=== PATIENT | female | born 1995 | race Two or more races ===

== ENCOUNTER → 2021-10-07 | Outpatient (REF) | payer SELFPAY ==
[2021-10-07 16:51] LABS: HCG, SERUM QUALITATIVE NEGATIVE (NEGATIVE)
== END ==
LOC: M LABWUC 16:11
PROVIDERS: ATTEND Psychiatry & Neurology Neurology
DX: R51.9 Headache, unspecified (principal)

== ENCOUNTER → 2022-12-12 | Outpatient (CLI) | payer OTHER ==
[2022-12-12 13:44] LABS: FREE T3 3.3 PG/ML (2.3-4.2)
[2022-12-12 13:45] LABS: FOLLICLE STIMULATING HORMONE 3.6 mIU/ML; FREE T4 0.95 NG/DL (0.89-1.76); THYROID STIMULATING HORMONE 0.843 uIU/ML (0.55-4.78); THYROXINE (T4) 7.8 UG/DL (4.5-10.9)
[2022-12-12 13:46] LABS: ESTRADIOL 122.7 PG/ML; LUTEINIZING HORMONE 2.4 mIU/ML; TOTAL 25(OH) VITAMIN D 30.5 NG/ML (20.0-100.0)
[2022-12-12 13:47] LABS: PROGESTERONE 10.49 NG/ML
== END ==
LOC: M WUC 10:12
PROVIDERS: ATTEND Nurse Practitioner Family
DX: N92.6 Irregular menstruation, unspecified (principal); N97.9 Female infertility, unspecified; Z79.899 Other long term (current) drug therapy

== ENCOUNTER → 2022-12-12 | Outpatient (CLI) | payer OTHER ==
[2022-12-12 13:43] LABS: THYROID STIMULATING HORMONE 0.84 uIU/ML (0.55-4.78)
[2022-12-12 13:46] LABS: PROGESTERONE 10.31 NG/ML
== END ==
LOC: M WUC 10:15
PROVIDERS: ATTEND Internal Medicine
DX: N92.6 Irregular menstruation, unspecified (principal); M54.6 Pain in thoracic spine; M41.84 Other forms of scoliosis, thoracic region

== ENCOUNTER 2023-06-11 14:37 | Emergency (ER) | payer OTHER ==
[~2023-06-11] VITALS: Ht 147.3 cm; Wt 73.4 kg
[2023-06-11 18:47] LABS: BASO # 0.1 10^3/uL (0.0-0.2); BASO % 0.8 % (0.0-1.0); EOS # 0.4 10^3/uL (0.0-0.5); EOS % 3.9 % (0.0-3.0); HEMATOCRIT 44.3 % (36.0-47.0); HEMOGLOBIN 14.8 g/dl (12.0-15.5); LYMPH % 30.7 % (24.0-44.0); MEAN CORPUSCULAR HEMOGLOBIN 29.9 pg (27.0-33.0); MEAN CORPUSCULAR HGB CONC 33.4 g/dl (32.0-36.5); MEAN CORPUSCULAR VOLUME 89.5 fl (80.0-96.0); MONO # 0.6 10^3/uL (0.0-0.8); MONO % 5.7 % (2.0-8.0); NEUTROPHILS # 5.8 10^3/uL (1.5-8.5); NEUTROPHILS % 58.7 % (36.0-66.0); PLATELET COUNT, AUTOMATED 303 10^3/uL (150-450); RED BLOOD COUNT 4.95 10^6/uL (4.00-5.40); WHITE BLOOD COUNT 9.9 10^3/uL (4.0-10.0)
[2023-06-11 19:13] LABS: LIPASE 36 U/L (12-53)
[2023-06-11 19:20] LABS: ALKALINE PHOSPHATASE 69 U/L (46-116); ALT/SGPT 19 U/L (7.0-40); AST/SGOT 21 U/L (<34); BILIRUBIN,DIRECT 0.1 MG/DL (<0.4); BILIRUBIN,TOTAL 0.5 MG/DL (0.3-1.2); BLOOD UREA NITROGEN < 5 MG/DL (9-23); CALCIUM LEVEL 8.8 MG/DL (8.5-10.1); CARBON DIOXIDE LEVEL 27 MMOL/L (20-31); CHLORIDE LEVEL 103 MMOL/L (98-107); CREATININE FOR GFR 0.58 MG/DL (0.55-1.30); GLOMERULAR FILTRATION RATE > 60.0 (>60); GLUCOSE, FASTING 87 MG/DL (60-100); HCG, SERUM QUALITATIVE NEGATIVE (NEGATIVE); POTASSIUM SERUM 4.2 MMOL/L (3.5-5.1); SODIUM LEVEL 137 MMOL/L (136-145); TOTAL PROTEIN 7.8 G/DL (5.7-8.2)
[2023-06-11] MEDS ORDERED: ISOVUE-370 76% 100ML VIAL As Ordered ONE (20:31)
[2023-06-11] MEDS: ACETAMINOPHEN 500 MG TAB PO ONE (22:13)
[2023-06-11 22:19] VITALS: BP 120/74; TEMP 97.8; O2SAT 100
== END 2023-06-11 22:40 | disposition home or self-care (01) ==
LOC: M ED 14:37
DX: R10.10 Upper abdominal pain, unspecified (principal); N83.291 Other ovarian cyst, right side; K76.0 Fatty (change of) liver, not elsewhere classified; F32.A Depression, unspecified; E03.9 Hypothyroidism, unspecified; F17.200 Nicotine dependence, unspecified, uncomplicated; F10.10 Alcohol abuse, uncomplicated
CPT/HCPCS: 36415; 71046; 74177; 80048; 80076; 83690; 84703; 85025; 99284; Q9967

== ENCOUNTER 2023-08-25 14:30 | Emergency (ER) | payer OTHER ==
[~2023-08-25] VITALS: Ht 147.3 cm; Wt 72.7 kg
[2023-08-25 15:11] LABS: BASO # 0.1 10^3/uL (0.0-0.2); BASO % 0.4 % (0.0-1.0); EOS # 0.1 10^3/uL (0.0-0.5); EOS % 0.8 % (0.0-3.0); HEMATOCRIT 41.2 % (36.0-47.0); HEMOGLOBIN 13.8 g/dl (12.0-15.5); LYMPH # 2.1 10^3/uL (1.5-5.0); LYMPH % 18.2 % (24.0-44.0); MEAN CORPUSCULAR HEMOGLOBIN 30.2 pg (27.0-33.0); MEAN CORPUSCULAR HGB CONC 33.5 g/dl (32.0-36.5); MEAN CORPUSCULAR VOLUME 90.2 fl (80.0-96.0); MONO # 0.9 10^3/uL (0.0-0.8); NEUTROPHILS # 8.4 10^3/uL (1.5-8.5); NEUTROPHILS % 72.2 % (36.0-66.0); PLATELET COUNT, AUTOMATED 299 10^3/uL (150-450); RED BLOOD COUNT 4.57 10^6/uL (4.00-5.40); WHITE BLOOD COUNT 11.6 10^3/uL (4.0-10.0)
[2023-08-25] MEDS: diphenhydrAMINE 50MG/ML VIAL IV STA (15:22)
[2023-08-25 15:38] LABS: LIPASE 40 U/L (12-53)
[2023-08-25 15:41] LABS: ALBUMIN 3.7 G/DL (3.2-5.2); ALKALINE PHOSPHATASE 55 U/L (46-116); ALT/SGPT 31 U/L (7.0-40); AST/SGOT 11 U/L (<34); BILIRUBIN,DIRECT 0.1 MG/DL (<0.4); BILIRUBIN,TOTAL 0.5 MG/DL (0.3-1.2); CK-MB VALUE MASS < 1.0 NG/ML (<3.6); TOTAL PROTEIN 7.1 G/DL (5.7-8.2)
[2023-08-25 15:56] LABS: CPK CREATINE PHOSPHOKINASE 58 U/L (34-145); MB/CK RELATIVE INDEX 1.72 (< OR =4)
[2023-08-25 16:17] LABS: CK-MB VALUE MASS < 1.0 NG/ML (<3.6)
[2023-08-25 16:19] LABS: CPK CREATINE PHOSPHOKINASE 72 U/L (34-145); MB/CK RELATIVE INDEX 1.38 (< OR =4)
[2023-08-25] MEDS: cefTRIAXone SOD 1 GM in D5W MINI-BAG PLUS 50 ML IV ONE (16:21)
[2023-08-25 16:38] VITALS: BP 99/54; TEMP 98.4; O2SAT 100
[2023-08-25] MEDS: NS 1,000 ML IV ONE (16:54)
[2023-08-25 17:26] LABS: GC DNA AMPLIFICATION NEGATIVE (NEGATIVE)
[2023-08-25] MEDS ORDERED: CEPH500C PO (17:43)
== END 2023-08-25 17:49 | disposition home or self-care (01) ==
LOC: M ED 14:30
DX: O20.0 Threatened abortion (principal); O99.411 Diseases of the circulatory system complicating pregnancy, first trimester; R07.9 Chest pain, unspecified; O99.351 Diseases of the nervous system complicating pregnancy, first trimester; G43.909 Migraine, unspecified, not intractable, without status migrainosus; O23.41 Unspecified infection of urinary tract in pregnancy, first trimester; K76.0 Fatty (change of) liver, not elsewhere classified; E03.9 Hypothyroidism, unspecified; Z3A.01 Less than 8 weeks gestation of pregnancy; Z79.2 Long term (current) use of antibiotics
CPT/HCPCS: 76801; 80047; 80076; 81001; 82550; 82553; 83690; 84484; 84702; 85025; 85379; 86850; 86900; 86901; 87086; 87210; 87810; 87850; 93005; 93976; 96361; 96365; 99284; J0696; J1200

== ENCOUNTER 2023-08-28 02:04 | Emergency (ER) | payer OTHER ==
[~2023-08-28] VITALS: Ht 147.3 cm; Wt 71.8 kg
[~2023-08-28 02:04] MED LIST: CEPH500C PO
[2023-08-28] MEDS: NS 1,000 ML IV ONE (06:54)
[2023-08-28] MEDS: METOCLOPRAMIDE INJ 10MG/2ML VIAL IV ONE (06:56)
[2023-08-28 07:00] LABS: BASO # 0.1 10^3/uL (0.0-0.2); BASO % 0.4 % (0.0-1.0); HEMATOCRIT 38.8 % (36.0-47.0); LYMPH # 1.7 10^3/uL (1.5-5.0); MEAN CORPUSCULAR HEMOGLOBIN 29.4 pg (27.0-33.0); MEAN CORPUSCULAR HGB CONC 33.5 g/dl (32.0-36.5); MEAN CORPUSCULAR VOLUME 87.8 fl (80.0-96.0); MONO # 0.6 10^3/uL (0.0-0.8); MONO % 4.7 % (2.0-8.0); NEUTROPHILS # 10.9 10^3/uL (1.5-8.5); NEUTROPHILS % 81.4 % (36.0-66.0); PLATELET COUNT, AUTOMATED 333 10^3/uL (150-450); RED BLOOD COUNT 4.42 10^6/uL (4.00-5.40); WHITE BLOOD COUNT 13.3 10^3/uL (4.0-10.0)
[2023-08-28 07:21] LABS: LIPASE 32 U/L (12-53)
[2023-08-28] MEDS: diphenhydrAMINE 50MG/ML VIAL IV STA (07:30)
[2023-08-28 07:35] LABS: ALBUMIN 3.5 G/DL (3.2-5.2); ALKALINE PHOSPHATASE 59 U/L (46-116); ALT/SGPT 29 U/L (7.0-40); AST/SGOT 9 U/L (<34); BILIRUBIN,DIRECT 0.2 MG/DL (<0.4); BILIRUBIN,TOTAL 0.5 MG/DL (0.3-1.2); BLOOD UREA NITROGEN 8 MG/DL (9-23); CALCIUM LEVEL 8.8 MG/DL (8.5-10.1); CARBON DIOXIDE LEVEL 24 MMOL/L (20-31); CHLORIDE LEVEL 107 MMOL/L (98-107); CREATININE FOR GFR 0.47 MG/DL (0.55-1.30); GLOMERULAR FILTRATION RATE > 60.0 (>60); GLUCOSE, FASTING 100 MG/DL (60-100); HCG, SERUM QUANTITATIVE 78988.4 MIU/ML (<4.2); POTASSIUM SERUM 4.2 MMOL/L (3.5-5.1); SODIUM LEVEL 138 MMOL/L (136-145); TOTAL PROTEIN 6.7 G/DL (5.7-8.2)
[2023-08-28] MEDS: LIDOCAINE 2% 5ML JELLY UROJET TOP ONE (09:45)
[2023-08-28] MEDS: CEPHALEXIN 500 MG CAP PO ONE (10:45)
[2023-08-28 10:57] VITALS: BP 103/58; TEMP 98.4; O2SAT 99
[2023-08-31] MEDS ORDERED: MACR100C43 PO (10:54)
== END 2023-08-28 10:59 | disposition home or self-care (01) ==
LOC: M ED 02:04
DX: O23.41 Unspecified infection of urinary tract in pregnancy, first trimester (principal); O26.891 Other specified pregnancy related conditions, first trimester; M54.50 Low back pain, unspecified; M54.2 Cervicalgia; O99.351 Diseases of the nervous system complicating pregnancy, first trimester; G43.909 Migraine, unspecified, not intractable, without status migrainosus; Z3A.01 Less than 8 weeks gestation of pregnancy; Z79.2 Long term (current) use of antibiotics
CPT/HCPCS: 51701; 76801; 80048; 80076; 81001; 83605; 83690; 84702; 85025; 87088; 87186; 87486; 87581; 87633; 87798; 87880; 96374; 96375; 99284; J1200; J2765

== ENCOUNTER 2023-09-02 14:23 | Emergency (ER) | payer OTHER ==
[~2023-09-02] VITALS: Ht 147.3 cm; Wt 72.0 kg
[~2023-09-02 14:23] MED LIST changes: +MACR100C43 PO
[2023-09-02] MEDS ORDERED: LAMO100T80 PO (14:32)
[2023-09-02] MEDS ORDERED: VENL150C43 PO (14:32)
[2023-09-02] MEDS: NS 1,000 ML IV ONE (15:44)
[2023-09-02 15:48] LABS: BASO # 0.1 10^3/uL (0.0-0.2); BASO % 0.4 % (0.0-1.0); EOS # 0.4 10^3/uL (0.0-0.5); HEMATOCRIT 38.5 % (36.0-47.0); HEMOGLOBIN 13.1 g/dl (12.0-15.5); LYMPH # 2.4 10^3/uL (1.5-5.0); LYMPH % 17.9 % (24.0-44.0); MEAN CORPUSCULAR HEMOGLOBIN 30.2 pg (27.0-33.0); MEAN CORPUSCULAR VOLUME 88.7 fl (80.0-96.0); MONO % 7.7 % (2.0-8.0); NEUTROPHILS # 9.5 10^3/uL (1.5-8.5); NEUTROPHILS % 70.6 % (36.0-66.0); PLATELET COUNT, AUTOMATED 311 10^3/uL (150-450); RED BLOOD COUNT 4.34 10^6/uL (4.00-5.40); WHITE BLOOD COUNT 13.5 10^3/uL (4.0-10.0)
[2023-09-02 16:13] LABS: LIPASE 37 U/L (12-53)
[2023-09-02 16:15] LABS: ALBUMIN 3.5 G/DL (3.2-5.2); ALKALINE PHOSPHATASE 70 U/L (46-116); ALT/SGPT 24 U/L (7.0-40); AST/SGOT 8 U/L (<34); BILIRUBIN,DIRECT 0.1 MG/DL (<0.4); BILIRUBIN,TOTAL 0.5 MG/DL (0.3-1.2); BLOOD UREA NITROGEN 6 MG/DL (9-23); CALCIUM LEVEL 8.9 MG/DL (8.5-10.1); CARBON DIOXIDE LEVEL 23 MMOL/L (20-31); CHLORIDE LEVEL 102 MMOL/L (98-107); CREATININE FOR GFR 0.49 MG/DL (0.55-1.30); GLOMERULAR FILTRATION RATE > 60.0 (>60); GLUCOSE, FASTING 95 MG/DL (60-100); POTASSIUM SERUM 3.9 MMOL/L (3.5-5.1); SODIUM LEVEL 133 MMOL/L (136-145); TOTAL PROTEIN 6.8 G/DL (5.7-8.2)
[2023-09-02] MEDS ORDERED: LACT1CAP53 PO (18:09)
[2023-09-02] MEDS ORDERED: CLOT45CR9 PV (18:09)
[2023-09-02 18:11] VITALS: BP 105/55; TEMP 98.6; O2SAT 99
[2023-09-02 19:11] LABS: Trichomonas vaginalis (AMP) NOT DETECTED (NEGATIVE)
[2023-09-02 21:33] LABS: GC DNA AMPLIFICATION NEGATIVE (NEGATIVE)
[2023-09-06] MEDS ORDERED: CEFD300C PO (08:50)
== END 2023-09-02 20:39 | disposition home or self-care (01) ==
LOC: M ED 14:23
DX: O23.591 Infection of other part of genital tract in pregnancy, first trimester (principal); B37.31 Acute candidiasis of vulva and vagina; R51.9 Headache, unspecified; K76.0 Fatty (change of) liver, not elsewhere classified; Z3A.01 Less than 8 weeks gestation of pregnancy; Z79.2 Long term (current) use of antibiotics; Z79.899 Other long term (current) drug therapy

== ENCOUNTER 2023-09-04 12:53 | Emergency (ER) | payer OTHER ==
[~2023-09-04] VITALS: Ht 147.3 cm; Wt 72.7 kg
[~2023-09-04 12:53] MED LIST changes: +CLOT45CR9 PV; +LACT1CAP53 PO; +LAMO100T80 PO; +VENL150C43 PO
[2023-09-04 14:34] LABS: BASO % 0.4 % (0.0-1.0); EOS # 0.2 10^3/uL (0.0-0.5); EOS % 2.1 % (0.0-3.0); HEMATOCRIT 38.2 % (36.0-47.0); LYMPH % 17.7 % (24.0-44.0); MEAN CORPUSCULAR HEMOGLOBIN 30.1 pg (27.0-33.0); MEAN CORPUSCULAR VOLUME 88.4 fl (80.0-96.0); MONO # 1.5 10^3/uL (0.0-0.8); MONO % 13.2 % (2.0-8.0); NEUTROPHILS # 7.5 10^3/uL (1.5-8.5); NEUTROPHILS % 66.2 % (36.0-66.0); PLATELET COUNT, AUTOMATED 293 10^3/uL (150-450); RED BLOOD COUNT 4.32 10^6/uL (4.00-5.40); WHITE BLOOD COUNT 11.3 10^3/uL (4.0-10.0)
[2023-09-04 14:56] LABS: LIPASE 29 U/L (12-53)
[2023-09-04 14:59] LABS: ALBUMIN 3.5 G/DL (3.2-5.2); ALKALINE PHOSPHATASE 65 U/L (46-116); ALT/SGPT 21 U/L (7.0-40); AST/SGOT 20 U/L (<34); BILIRUBIN,DIRECT 0.1 MG/DL (<0.4); BILIRUBIN,TOTAL 0.4 MG/DL (0.3-1.2); BLOOD UREA NITROGEN 6 MG/DL (9-23); CALCIUM LEVEL 8.8 MG/DL (8.5-10.1); CARBON DIOXIDE LEVEL 21 MMOL/L (20-31); CHLORIDE LEVEL 101 MMOL/L (98-107); CREATININE FOR GFR 0.45 MG/DL (0.55-1.30); GLOMERULAR FILTRATION RATE > 60.0 (>60); GLUCOSE, FASTING 85 MG/DL (60-100); SODIUM LEVEL 134 MMOL/L (136-145); TOTAL PROTEIN 6.7 G/DL (5.7-8.2)
[2023-09-04] MEDS: NS 1,000 ML IV ONE (15:05)
[2023-09-04] MEDS: NORCO, ANEXSIA 5/325MG TABLET (HYDROcodone/ACETAMINOPHEN) PO ONE (15:07)
[2023-09-04] MEDS ORDERED: METO5TAB2 PO (15:14)
[2023-09-04] MEDS ORDERED: LAMO25TA4 PO (15:14)
[2023-09-04] MEDS ORDERED: CLOT1CRE19 VG (15:14)
[2023-09-04 15:29] LABS: HCG, SERUM QUANTITATIVE 127421.5 MIU/ML (<4.2)
[2023-09-04 16:05] VITALS: BP 107/56; TEMP 99
[2023-09-04 16:30] VITALS: O2SAT 97
[2023-09-04 17:33] LABS: HEPATITIS B SURFACE ANTIBODY NEGATIVE (POSITIVE)
[2023-09-04 17:43] LABS: Trichomonas vaginalis (AMP) NOT DETECTED (NEGATIVE)
[2023-09-04 17:46] LABS: HEPATITIS B SURFACE ANTIGEN NEGATIVE (NEGATIVE)
[2023-09-04] MEDS ORDERED: VALA1TAB5 PO (17:54)
[2023-09-04] MEDS ORDERED: OXYC1CAP2 PO (17:54)
[2023-09-04] MEDS ORDERED: [UNRECOGNIZED DRUG - CODE] TOP (17:54)
[2023-09-04 17:58] LABS: HIV 1&2 SCREEN NEGATIVE (NEGATIVE)
[2023-09-04 18:06] LABS: GC DNA AMPLIFICATION NEGATIVE (NEGATIVE)
[2023-09-04 18:06] LABS: HEPATITIS C VIRUS ABY INDEX < 0.02 INDEX (<0.8)
[2023-09-04] MEDS: valACYclovir HCL 500 MG TAB PO ONE (18:07)
[2023-09-06] MEDS ORDERED: CEFD300C PO (08:50)
[2023-09-08 22:18] LABS: HSV SOURCE Serum; HSV-1 DNA Detected (Not Detected); HSV-2 DNA Not Detected (Not Detected)
== END 2023-09-04 18:27 | disposition home or self-care (01) ==
LOC: EDBD 12:53 → M ED 12:53
DX: O98.311 Other infections with a predominantly sexual mode of transmission complicating pregnancy, first trimester (principal); Z3A.00 Weeks of gestation of pregnancy not specified

== ENCOUNTER 2023-09-06 17:53 | Emergency (ER) | payer OTHER ==
[~2023-09-06] VITALS: Ht 149.9 cm; Wt 72.7 kg
[~2023-09-06 17:53] MED LIST changes: +CEFD300C PO; +CLOT1CRE19 VG; +LAMO25TA4 PO; +METO5TAB2 PO; +OXYC1CAP2 PO; +VALA1TAB5 PO; +[UNRECOGNIZED DRUG - CODE] TOP
[2023-09-06 19:45] LABS: BASO # 0.1 10^3/uL (0.0-0.2); BASO % 0.5 % (0.0-1.0); EOS # 0.1 10^3/uL (0.0-0.5); EOS % 0.7 % (0.0-3.0); HEMATOCRIT 37.1 % (36.0-47.0); HEMOGLOBIN 12.6 g/dl (12.0-15.5); LYMPH # 2.5 10^3/uL (1.5-5.0); LYMPH % 24.5 % (24.0-44.0); MEAN CORPUSCULAR HEMOGLOBIN 29.8 pg (27.0-33.0); MEAN CORPUSCULAR VOLUME 87.7 fl (80.0-96.0); MONO # 1.2 10^3/uL (0.0-0.8); MONO % 11.3 % (2.0-8.0); NEUTROPHILS # 6.4 10^3/uL (1.5-8.5); NEUTROPHILS % 62.6 % (36.0-66.0); PLATELET COUNT, AUTOMATED 284 10^3/uL (150-450); RED BLOOD COUNT 4.23 10^6/uL (4.00-5.40); WHITE BLOOD COUNT 10.2 10^3/uL (4.0-10.0)
[2023-09-06 20:15] LABS: CK-MB VALUE MASS < 1.0 NG/ML (<3.6)
[2023-09-06 20:16] LABS: LIPASE 35 U/L (12-53)
[2023-09-06 20:18] LABS: ALBUMIN 3.3 G/DL (3.2-5.2); ALKALINE PHOSPHATASE 67 U/L (46-116); ALT/SGPT 24 U/L (7.0-40); AST/SGOT 12 U/L (<34); BILIRUBIN,DIRECT 0.1 MG/DL (<0.4); BILIRUBIN,TOTAL 0.2 MG/DL (0.3-1.2); BLOOD UREA NITROGEN 6 MG/DL (9-23); CALCIUM LEVEL 8.5 MG/DL (8.5-10.1); CARBON DIOXIDE LEVEL 21 MMOL/L (20-31); CHLORIDE LEVEL 104 MMOL/L (98-107); CREATININE FOR GFR 0.47 MG/DL (0.55-1.30); GLOMERULAR FILTRATION RATE > 60.0 (>60); GLUCOSE, FASTING 86 MG/DL (60-100); POTASSIUM SERUM 3.7 MMOL/L (3.5-5.1); SODIUM LEVEL 134 MMOL/L (136-145); TOTAL PROTEIN 6.8 G/DL (5.7-8.2)
[2023-09-06 20:36] LABS: CPK CREATINE PHOSPHOKINASE 35 U/L (34-145); MB/CK RELATIVE INDEX 2.85 (< OR =4)
[2023-09-06 20:55] LABS: HCG, SERUM QUANTITATIVE 133172.8 MIU/ML (<4.2)
[2023-09-06] MEDS: ACETAMINOPHEN 325 MG TAB PO ONE (21:21)
[2023-09-06] MEDS ORDERED: NS 1,000 ML IV ONE (21:25)
[2023-09-06] MEDS: ONDANSETRON 4MG ORAL DISINTEGRATING TAB PO ONE (22:01)
[2023-09-06] MEDS ORDERED: ONDA-282 PO (22:48)
[2023-09-06 22:51] VITALS: BP 119/61; TEMP 98.7; O2SAT 98
== END 2023-09-06 22:58 | disposition home or self-care (01) ==
LOC: M ED 17:53 → EDBD 17:53 → M ED 22:58
DX: O26.91 Pregnancy related conditions, unspecified, first trimester (principal); R07.89 Other chest pain; R51.9 Headache, unspecified; Z87.891 Personal history of nicotine dependence; Z3A.08 8 weeks gestation of pregnancy; Z79.2 Long term (current) use of antibiotics; Z79.83 Long term (current) use of bisphosphonates; Z79.899 Other long term (current) drug therapy